=== PATIENT | female | born 1965 | race Caucasian/White ===

== ENCOUNTER 2017-11-25 10:36 | Emergency (ER) | payer SELFPAY ==
[~2017-11-25] VITALS: Ht 162.6 cm; Wt 76.0 kg
[~2017-11-25 10:36] MED LIST: AMOXICILLIN500 MG PO; ATENOLOL25 MG PO; BONTRIL PDM35 MG OR; LOVASTATIN20 MG PO; ONDANSETRON4 MG PO; PHENERMINE OR; ULTRAM50 M1 PO; XANAX0.25 MG OR
[2017-11-25] MEDS ORDERED: IBUPROFEN600 MG PO (12:27)
[2017-11-25 12:35] VITALS: BP 118/77
== END 2017-11-25 12:35 | disposition home or self-care (01) | DRG 563 ==
LOC: ED 10:36
DX: S86.912A Strain of unspecified muscle(s) and tendon(s) at lower leg level, left leg, initial encounter (principal); S86.911A Strain of unspecified muscle(s) and tendon(s) at lower leg level, right leg, initial encounter; F41.9 Anxiety disorder, unspecified; E78.00 Pure hypercholesterolemia, unspecified; F17.210 Nicotine dependence, cigarettes, uncomplicated; W07.XXXA Fall from chair, initial encounter; Y92.009 Unspecified place in unspecified non-institutional (private) residence as the place of occurrence of the external cause

== ENCOUNTER 2019-01-28 09:28 | Emergency (ER) | payer BC ==
[~2019-01-28] VITALS: Ht 162.6 cm; Wt 75.0 kg
[~2019-01-28 09:28] MED LIST changes: +IBUPROFEN600 MG PO
[2019-01-28] MEDS ORDERED: ALPRAZOLAM1 MG PO (09:43)
[2019-01-28] MEDS ORDERED: CYCLOBENZAPR5 MG PO (10:27)
[2019-01-28 11:16] VITALS: BP 138/70
== END 2019-01-28 11:16 | disposition home or self-care (01) | DRG 563 ==
LOC: ED 09:28
DX: S39.012A Strain of muscle, fascia and tendon of lower back, initial encounter (principal); F17.200 Nicotine dependence, unspecified, uncomplicated; X50.9XXA Other and unspecified overexertion or strenuous movements or postures, initial encounter

== ENCOUNTER 2020-10-19 09:18 | Day surgery (SDC) | payer BC ==
[~2020-10-19] VITALS: Ht 160 cm; Wt 61.7 kg
[~2020-10-19 09:18] MED LIST changes: +ALPRAZOLAM1 MG PO; +CYCLOBENZAPR5 MG PO; +LIPITOR20 M1 PO
[2020-10-19 11:25] VITALS: BP 113/69
== END 2020-10-19 11:36 | disposition home or self-care (01) | DRG 951 ==
LOC: ENDO 09:18 → ORM 11:15 → ENDO 11:36
PROVIDERS: ATTEND Surgery
PROC: 0DBG8ZX Excision of Left Large Intestine, Via Natural or Artificial Opening Endoscopic, Diagnostic (ICD-10-PCS; principal; 2020-10-19)
PROC: 0DBL8ZX Excision of Transverse Colon, Via Natural or Artificial Opening Endoscopic, Diagnostic (ICD-10-PCS; 2020-10-19)
DX: Z12.11 Encounter for screening for malignant neoplasm of colon (principal); D12.4 Benign neoplasm of descending colon; K63.5 Polyp of colon; K64.8 Other hemorrhoids; F41.9 Anxiety disorder, unspecified; Z80.0 Family history of malignant neoplasm of digestive organs